=== PATIENT | male | born 1985 | race Caucasian/White ===

== ENCOUNTER 2023-10-21 09:26 | Emergency (ER) | payer SELFPAY ==
[2023-10-21 09:28] VITALS: BP 113/78; PULSE 83; RESP 17; TEMP 36.9; O2SAT 98
--- NOTE | 2023-10-21 09:28 | ED.EAR ---
HPI - Ear Problem General Chief complaint: Ear Stated complaint: left ear pain Time Seen by Provider: 10/21/23 09:27 Source: patient Mode of arrival: ambulatory Limitations: no limitations History of Present Illness HPI Narrative: Patient is a 38-year-old male with a left ear pain for the past 2 days. He has recently had a fever which has resolved at this time per history. MD Complaint: ear pain ( Left) and decreased hearing Location: left ear Duration: constant Severity: moderate Relieving factors: nothing Exacerbating factors: nothing Context: Reports recent illness Discharge from ear: Reports no Associated symptoms ear: fever and decreased hearing Treatment prior to arrival: none Related Data Allergies Allergy/AdvReac Type Severity Reaction Status Date / Time No Known Allergies Allergy Verified 10/21/23 09:27 Review of Systems Review of Systems: All systems reviewed & are unremarkable except as noted in HPI and below Constitutional: Constitutional: Reports no additional constitutional complaints Eyes: Eyes: Reports no additional eye complaints ENT: Reports system reviewed and no additional complaints, except as documented Cardiovascular: Cardiovascular: Reports no additional cardiovascular complaints Respiratory: Respiratory: Reports no additional respiratory complaints Gastrointestinal: Gastrointestinal: Reports no additional gastrointestinal complaints Genitourinary: Genitourinary: Reports no additional male genitourinary complaints Musculoskeletal: Musculoskeletal: Reports no additional musculoskeletal complaints Integumentary/Breasts: Skin/Breast: Reports system reviewed and no additional complaints, except as docu Neurologic: Reports system reviewed and no additional complaints, except as documented Psychiatric: Psychiatric: Reports no additional psychiatric complaints Endocrine: Endocrine: Reports no additional endocrine complaints Hematologic/Lymphatic: Hematologic/Lymphatic: Reports no additional hematologic/lymphatic complaints Allergic/Immunologic: Allergic/Immunologic: Reports no additional allergic/immunologic complaints Exam Const: General: healthy appearing Nutritional Appearance: well nourished Orientation/consciousness: patient oriented x3 HENMT: Head: normal to inspection Ears: external ears normal Face/Nose/Sinus: Normal external nose present Other: left ear is red auditory canal and tender as well as tympanic membrane is red and irritated Eyes: Conjunctivae: conjunctivae normal Pupils: Equal, round and reactive pupils present EOM: EOMs intact bilaterally Neck: Neck: normal visual inspection Chest: Chest palpation & inspection: normal inspection of the chest Resp: Effort & Inspection: normal respiratory effort and not labored Auscultation: clear to auscultation bilaterally Cardio: Rate: regular rate Rhythm: regular rhythm Heart sounds: no murmurs GI: Inspection: non-distended Auscultation: normal bowel sounds : General: Yes bladder normal to palpation Back/Spine/Pelvis: Back: no CVA tenderness Skin: General skin exam: normal color Rashes: no rashes Wounds: no wounds Neuro: General: patient oriented x3 Cranial nerves: Yes Nystagmus not present Speech: normal speech Extrem: General: normal to inspection Psych: Mental Status: mental status grossly normal Affect: normal affect Attitude: cooperative Course Vital Signs Vital signs: Vital Signs Temperature 36.9 C 10/21/23 09:28 Pulse Rate 83 10/21/23 09:28 Respiratory Rate 17 10/21/23 09:28 Blood Pressure 113/78 10/21/23 09:28 Pulse Oximetry 98 10/21/23 09:28 Oxygen Delivery Room Air 10/21/23 09:28 Temperature 36.9 C 10/21/23 09:28 Pulse Rate 83 10/21/23 09:28 Respiratory Rate 17 10/21/23 09:28 Blood Pressure 113/78 10/21/23 09:28 Pulse Oximetry 98 10/21/23 09:28 Oxygen Delivery Room Air 10/21/23 09:28 Medical Decision Making MDM Narrat
[2023-10-21] MEDS: AMOXICILLIN/CLAVULANATE K 500-125 MG TAB 1 TABLET PO (09:48)
[2023-10-21 10:02] VITALS: BP 113/78; PULSE 83; RESP 17; TEMP 36.9; O2SAT 98
== END 2023-10-21 10:02 | disposition home or self-care (01) ==
LOC: CHSED 10:00
PROVIDERS: Emergency Provider Emergency Medicine
DX: H60.92 Unspecified otitis externa, left ear (principal); H66.92 Otitis media, unspecified, left ear
CPT/HCPCS: 99283; A9270